=== PATIENT | male | born 2005 | race Caucasian/White ===

== ENCOUNTER 2023-04-21 20:16 | Emergency (ER) | payer BC ==
[2023-04-21] MEDS ORDERED: Lidocaine 1% (PF) 30 ML VIAL ONE (21:53)
== END 2023-04-21 23:25 | disposition home or self-care (01) ==
LOC: CSHERS 20:16
DX: S63.276A Dislocation of unspecified interphalangeal joint of right little finger, initial encounter (principal); W21.01XA Struck by football, initial encounter; Y93.61 Activity, american tackle football
CPT/HCPCS: 64450; J2001

== ENCOUNTER 2024-03-09 14:11 | Emergency (ER) | payer BC ==
[2024-03-09] MEDS ORDERED: Ketorolac Tromethamine 30 MG (1 mL) VIAL ONE (14:38)
[2024-03-09] MEDS ORDERED: Ondansetron PF 4 MG/2 ML Vial ONE (14:38)
[2024-03-09 15:06] LABS: #Basophils 0.02 10x3/uL (0.0-0.2); #Eosinophils 0.03 10x3/uL (0.0-0.5); #Monocytes 0.83 10x3/uL (0.0-1.1); #Neutrophils 8.57 10x3/uL (1.5-8.4); %Basophils 0.2 % (0.0-2.0); %Eosinophils 0.3 % (0.0-6.0); %Monocytes 8.4 % (0.0-10.0); %Neutrophils 86.6 % (40.0-75.0); Hematocrit 50.1 % (38.8-50.0); Hemoglobin 17.1 g/dL (13.5-17.5); Mean Corpuscular HGB CONC 34.1 g/dL (32.0-36.0); Mean Corpuscular Hemoglobin 29.5 pg (27.0-33.0); Mean Corpuscular Volume 86.4 fL (81.2-95.1); Mean Platelet Volume 9.9 fL (7.4-10.4); Platelet Count 196 10x3/uL (150-450); RBC Distribution Width 12.3 % (11.5-14.5); White Blood Cell (WBC) Count 9.9 10x3/uL (3.5-10.5)
[2024-03-09 15:16] LABS: ALT (SGPT) 20 U/L (8-55); AST (SGOT) 20 U/L (5-34); Albumin 4.7 g/dL (3.5-5.0); Alkaline Phosphatase 57 U/L (50-130); Anion Gap 17 mmol/L (10-20); BUN (Urea Nitrogen) 21 mg/dL (8.9-20.6); Bilirubin, Total 1.7 mg/dL (0.2-1.2); Calc. Creatinine Clearance 0 mL/min (70-130); Calcium 9.9 mg/dL (7.8-10.44); Carbon Dioxide 21 mmol/L (22-29); Chloride 103 mmol/L (98-107); Estimated GFR 63; Globulin 2.9 g/dL (2.4-3.5); Glucose 121 mg/dL (70-105); Potassium 4.3 mmol/L (3.5-5.1); Protein, Total 7.6 g/dL (6.0-8.3); Sodium 137 mmol/L (136-145)
== END 2024-03-09 16:47 | disposition home or self-care (01) ==
LOC: CSHERS 14:11
DX: A08.4 Viral intestinal infection, unspecified (principal); N17.9 Acute kidney failure, unspecified; E86.0 Dehydration
CPT/HCPCS: 80053; 85025; 96361; 96374; 96375; J1885; J2405